=== PATIENT | male | born 1995 | race Two or more races ===

== ENCOUNTER 2021-10-31 14:17 | Emergency (ER) | payer OTHER ==
[~2021-10-31] VITALS: Ht 170.2 cm; Wt 63.0 kg
[2021-10-31 15:07] LABS: RED BLOOD COUNT 5.12 M/UL (4.20-5.50); WHITE BLOOD COUNT 5.6 K/UL (4.5-11.0)
[2021-10-31 15:46] LABS: BUN/CREATININE RATIO 28 (0-10)
[2021-11-01 02:51] LABS: WHITE BLOOD COUNT 4.2 K/UL (4.5-11.0)
[2021-11-01 03:26] LABS: BUN/CREATININE RATIO 20 (0-10)
[2021-11-01 03:36] LABS: HEMOGLOBIN 10.9 gm/dl (14.0-17.5); RED BLOOD COUNT 3.52 M/UL (4.20-5.50)
[2021-11-01 10:14] LABS: HEMOGLOBIN 11.4 gm/dl (14.0-17.5); RED BLOOD COUNT 3.65 M/UL (4.20-5.50); WHITE BLOOD COUNT 4.9 K/UL (4.5-11.0)
[2021-11-01 11:02] LABS: BUN/CREATININE RATIO 15 (0-10)
== END 2021-11-01 18:30 | disposition other institution (70) ==
LOC: ER1 14:17
PROVIDERS: Emergency Medicine; Family Medicine; Internal Medicine
DX: K92.0 Hematemesis (principal); K76.0 Fatty (change of) liver, not elsewhere classified; F10.129 Alcohol abuse with intoxication, unspecified; E87.2 Acidosis; Z20.822 Contact with and (suspected) exposure to COVID-19; Z87.891 Personal history of nicotine dependence
CPT/HCPCS: 80053; 80307; 82962; 83605; 83690; 83735; 84100; 85025; 85027; 85610; 85730; 86850; 86900; 86901; 87040; 93005; 96374; 96375; 99285; C9113; G0480; J0696; J2405; J3411; J3475; J7030; Q9967; U0002

== ENCOUNTER 2022-02-21 12:15 | Emergency (ER) | payer OTHER ==
[2022-02-21 13:29] LABS: HEMOGLOBIN 17.2 gm/dl (14.0-17.5); RED BLOOD COUNT 5.64 M/UL (4.20-5.50); WHITE BLOOD COUNT 9.5 K/UL (4.5-11.0)
[2022-02-21 13:49] LABS: BUN/CREATININE RATIO 28 (0-10)
[2022-02-21] MEDS ORDERED: ZOFRAN 4 MG TAB4 MG PO (17:33)
[2022-02-22 07:10] LABS: HBSAG SCREEN Negative (Negative); HCV AB 0.6 (0.0-0.9); HEP A AB, IGM Negative (Negative); HEP B CORE AB, IGM Negative (Negative)
== END 2022-02-21 19:15 | disposition home or self-care (01) ==
LOC: ER1 12:15
PROVIDERS: Emergency Medicine; Physician Assistant Medical
DX: K85.90 Acute pancreatitis without necrosis or infection, unspecified (principal); K86.1 Other chronic pancreatitis; K76.0 Fatty (change of) liver, not elsewhere classified; F10.10 Alcohol abuse, uncomplicated
CPT/HCPCS: 80053; 80074; 80307; 82009; 83605; 83690; 84439; 84443; 85025; 85610; 93005; 96374; 96375; 99284; C9113; G0480; J1885; J2060; J2270; J2405; Q9967

== ENCOUNTER 2022-02-23 20:46 | Inpatient (IN) | payer OTHER ==
[~2022-02-23] VITALS: Ht 170.2 cm; Wt 68.0 kg
[~2022-02-23 20:46] MED LIST: ZOFRAN 4 MG TAB4 MG PO
[2022-02-23 21:16] LABS: HEMOGLOBIN 17.7 gm/dl (14.0-17.5); RED BLOOD COUNT 5.79 M/UL (4.20-5.50)
[2022-02-23 21:27] LABS: WHITE BLOOD COUNT 6.2 K/UL (4.5-11.0)
[2022-02-23 21:41] LABS: BUN/CREATININE RATIO 21 (0-10)
[2022-02-24 01:50] LABS: WHITE BLOOD COUNT 5.6 K/UL (4.5-11.0)
[2022-02-24 01:55] LABS: RED BLOOD COUNT 4.97 M/UL (4.20-5.50)
[2022-02-24 02:17] LABS: BUN/CREATININE RATIO 22 (0-10)
[2022-02-25 08:01] LABS: HEMOGLOBIN 16.6 gm/dl (14.0-17.5); RED BLOOD COUNT 5.4 M/UL (4.20-5.50); WHITE BLOOD COUNT 6.8 K/UL (4.5-11.0)
[2022-02-25 09:06] LABS: BUN/CREATININE RATIO 12 (0-10)
[2022-02-25 14:10] LABS: ISOPROPANOL <0.010 g/dL (0.000-0.010); METHANOL <0.010 g/dL (0.000-0.010)
== END 2022-02-25 14:40 | disposition home or self-care (01) | DRG 896 ==
LOC: ER1 20:46 → CDU 23:11 → PROG CARE 23:11 → CDU 02-24 08:00 → PROG CARE 02-24 08:59
PROVIDERS: Internal Medicine; Physician Assistant; ADMIT Internal Medicine
DX: F10.129 Alcohol abuse with intoxication, unspecified (principal); G92.8 Other toxic encephalopathy; Z20.822 Contact with and (suspected) exposure to COVID-19; E87.6 Hypokalemia; F10.139 Alcohol abuse with withdrawal, unspecified
CPT/HCPCS: 36415; 70450; 71045; 80053; 80307; 82009; 82550; 82553; 82800; 82977; 83036; 83605; 83690; 83735; 84100; 84439; 84443; 84484; 85025; 85027; 85610; 87040; 87086; 93005; 96361; 96372; 96374; 96375; 96376; 99285; C9113; G0480; J2060; J2310; J2405; J7050